=== PATIENT | male | born 2000 | race Caucasian/White ===

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

== ENCOUNTER 2021-11-18 10:55 | Emergency (ER) | payer OTHER, BC ==
[~2021-11-18] VITALS: Ht 175.3 cm; Wt 75.0 kg
[2021-11-18 13:21] VITALS: BP 165/92
== END 2021-11-18 13:23 | disposition home or self-care (01) ==
LOC: M ED 10:55
DX: S60.222A Contusion of left hand, initial encounter (principal); Y92.9 Unspecified place or not applicable; Y93.9 Activity, unspecified; Y99.0 Civilian activity done for income or pay; F17.200 Nicotine dependence, unspecified, uncomplicated

== ENCOUNTER → 2021-11-26 | Outpatient (CLI) | payer OTHER, BC | LOC: M SOG 08:21 | PROVIDERS: ATTEND Physician Assistant | DX: S60.222A Contusion of left hand, initial encounter (principal); W18.30XA Fall on same level, unspecified, initial encounter; Y92.009 Unspecified place in unspecified non-institutional (private) residence as the place of occurrence of the external cause ==

== ENCOUNTER → 2022-01-21 | Outpatient (REF) | payer BC | LOC: M LAB REF 16:23 | PROVIDERS: ATTEND Physician Assistant | DX: R05.9 Cough, unspecified (principal); R50.9 Fever, unspecified ==

== ENCOUNTER 2022-06-22 12:08 | Emergency (ER) | payer BC ==
[~2022-06-22] VITALS: Ht 172.7 cm; Wt 70.7 kg
[2022-06-22 12:10] VITALS: BP 133/67
[2022-06-22] MEDS ORDERED: GI COCKTAIL 50ML BTL(HYOSCYAMINE/MAALOX/LIDOCAINE VISCOUS)(1:3:1) PO ONE (14:40)
[2022-06-22] MEDS ORDERED: KETOROLAC 60MG 2ML VIAL IM ONE (14:40)
[2022-06-22] MEDS ORDERED: LIDOCAINE 5% (LIDODERM) PATCH TD ONE (14:40)
[2022-06-22] MEDS ORDERED: **NOTE PATIENT COMMENT** MISC XX SCH (21:00)
== END 2022-06-22 14:47 | disposition left against medical advice (07) ==
LOC: M ED 12:08
DX: R07.9 Chest pain, unspecified (principal); J45.909 Unspecified asthma, uncomplicated; F17.200 Nicotine dependence, unspecified, uncomplicated; Z53.20 Procedure and treatment not carried out because of patient's decision for unspecified reasons

== ENCOUNTER 2022-09-14 10:22 | Emergency (ER) | payer BC ==
[~2022-09-14] VITALS: Ht 175.3 cm; Wt 68.2 kg
[2022-09-14] MEDS ORDERED: METH4PACK (10:44)
[2022-09-14] MEDS ORDERED: TIZA2TA (10:44)
[2022-09-14] MEDS ORDERED: AMOX500T2 PO (11:03)
[2022-09-14 11:58] VITALS: BP 139/78
== END 2022-09-14 12:10 | disposition home or self-care (01) ==
LOC: M ED 10:22
DX: K04.7 Periapical abscess without sinus (principal); K02.9 Dental caries, unspecified; F17.200 Nicotine dependence, unspecified, uncomplicated

== ENCOUNTER 2023-04-20 12:25 | Emergency (ER) | payer BC ==
[~2023-04-20] VITALS: Ht 175.3 cm; Wt 80.5 kg
[~2023-04-20 12:25] MED LIST changes: +AMOX500T2 PO; +METH4PACK; +TIZA2TA
[2023-04-20] MEDS ORDERED: AMOX875T (12:52)
[2023-04-20] MEDS ORDERED: IBUP80TA (12:52)
[2023-04-20 16:51] LABS: BASO # 0.1 10^3/uL (0.0-0.2); BASO % 0.5 % (0.0-1.0); EOS # 0.7 10^3/uL (0.0-0.5); HEMATOCRIT 45.8 % (42.0-52.0); HEMOGLOBIN 15.3 g/dl (13.5-17.5); LYMPH # 2.1 10^3/uL (1.5-5.0); LYMPH % 22.6 % (24.0-44.0); MEAN CORPUSCULAR HEMOGLOBIN 29.1 pg (27.0-33.0); MEAN CORPUSCULAR HGB CONC 33.4 g/dl (32.0-36.5); MEAN CORPUSCULAR VOLUME 87.2 fl (80.0-96.0); MONO # 0.9 10^3/uL (0.0-0.8); MONO % 9.6 % (2.0-8.0); NEUTROPHILS # 5.4 10^3/uL (1.5-8.5); NEUTROPHILS % 59.1 % (36.0-66.0); PLATELET COUNT, AUTOMATED 269 10^3/uL (150-450); RED BLOOD COUNT 5.25 10^6/uL (4.30-6.10); WHITE BLOOD COUNT 9.2 10^3/uL (4.0-10.0)
[2023-04-20] MEDS ORDERED: ISOVUE-370 76% 100ML VIAL As Ordered ONE (17:01)
[2023-04-20] MEDS ORDERED: KETOROLAC 30 MG/ML 1ML VIAL IV ONE (17:10)
[2023-04-20] MEDS ORDERED: CLEO300C2 PO (17:42)
[2023-04-20 17:49] VITALS: BP 145/89; TEMP 97.3; O2SAT 100
== END 2023-04-20 17:50 | disposition home or self-care (01) ==
LOC: M ED 12:25
DX: K04.7 Periapical abscess without sinus (principal); Z88.0 Allergy status to penicillin
CPT/HCPCS: 36415; 70487; 80047; 85025; 99283; J1885; Q9967

== ENCOUNTER 2023-04-25 01:25 | Emergency (ER) | payer BC ==
[~2023-04-25] VITALS: Ht 175.3 cm; Wt 83.7 kg
[2023-04-25 01:25] VITALS: BP 141/94; TEMP 97; O2SAT 98
[~2023-04-25 01:25] MED LIST changes: +AMOX875T; +CLEO300C2 PO; +IBUP80TA PO
[2023-04-25] MEDS ORDERED: ACET-683 PO (01:30)
== END 2023-04-25 02:45 | disposition left against medical advice (07) ==
LOC: M ED 01:25
DX: Z53.21 Procedure and treatment not carried out due to patient leaving prior to being seen by health care provider (principal)

== ENCOUNTER 2023-04-25 07:23 | Observation (INO) | payer BC ==
[~2023-04-25] VITALS: Ht 175.3 cm; Wt 82.0 kg
[~2023-04-25 07:23] MED LIST changes: +ACET-683 PO
[2023-04-25] MEDS ORDERED: CLINDAMYCIN 600 MG in IV 1 EA IV ONE (09:25)
[2023-04-25] MEDS ORDERED: ONDANSETRON 4MG 2ML VIAL IV ONE (09:25)
[2023-04-25] MEDS: MORPHINE 4 MG/ML 1ML VIAL IV PRN ×2 (09:39→10:50)
[2023-04-25 10:05] LABS: BASO % 0.5 % (0.0-1.0); EOS # 0.7 10^3/uL (0.0-0.5); EOS % 8.3 % (0.0-3.0); HEMATOCRIT 40.1 % (42.0-52.0); HEMOGLOBIN 14.2 g/dl (13.5-17.5); LYMPH # 1.5 10^3/uL (1.5-5.0); MEAN CORPUSCULAR HEMOGLOBIN 29.5 pg (27.0-33.0); MEAN CORPUSCULAR HGB CONC 35.4 g/dl (32.0-36.5); MEAN CORPUSCULAR VOLUME 83.4 fl (80.0-96.0); MONO # 0.6 10^3/uL (0.0-0.8); NEUTROPHILS # 5.1 10^3/uL (1.5-8.5); NEUTROPHILS % 64.8 % (36.0-66.0); PLATELET COUNT, AUTOMATED 241 10^3/uL (150-450); RED BLOOD COUNT 4.81 10^6/uL (4.30-6.10); WHITE BLOOD COUNT 7.8 10^3/uL (4.0-10.0)
[2023-04-25] MEDS ORDERED: ISOVUE-370 76% 100ML VIAL As Ordered ONE (10:34)
[2023-04-25] MEDS ORDERED: AMPICILLIN SOD/SULBACTAM SOD 3 GM in D5W MINI-BAG PLUS 100 ML IV ONE (11:50)
[2023-04-25] MEDS ORDERED: dexAMETHasone 20MG/5ML VIAL IV ONE (11:50)
[2023-04-25] MEDS ORDERED: KETOROLAC 30 MG/ML 1ML VIAL IV PRN (11:55)
[2023-04-25] MEDS ORDERED: MED REC IN PROGRESS XX SCH (12:20)
[2023-04-25 12:54] LABS: INR 0.96
[2023-04-25 12:55] LABS: PARTIAL THROMBOPLASTIN TIME 30.2 SECONDS (24.8-34.2)
[2023-04-25] MEDS ORDERED: HOME MED LIST COMPLETE! XX SCH (13:00)
[2023-04-25 13:06] LABS: ALBUMIN 4.6 G/DL (3.2-5.2); ALKALINE PHOSPHATASE 61 U/L (46-116); ALT/SGPT 23 U/L (7.0-40); AST/SGOT 10 U/L (<34); BILIRUBIN,TOTAL 0.6 MG/DL (0.3-1.2); BLOOD UREA NITROGEN 11 MG/DL (9-23); CALCIUM LEVEL 9.5 MG/DL (8.5-10.1); CARBON DIOXIDE LEVEL 29 MMOL/L (20-31); CHLORIDE LEVEL 103 MMOL/L (98-107); CREATININE FOR GFR 0.82 MG/DL (0.70-1.30); GLOMERULAR FILTRATION RATE > 60.0 (>60); GLUCOSE, FASTING 90 MG/DL (60-100); POTASSIUM SERUM 3.8 MMOL/L (3.5-5.1); SODIUM LEVEL 139 MMOL/L (136-145); TOTAL PROTEIN 8.8 G/DL (5.7-8.2)
[2023-04-25 16:07] VITALS: BP 127/82; TEMP 97.5; O2SAT 99
[2023-04-25] MEDS ORDERED: AMPICILLIN SOD/SULBACTAM SOD 3 GM in D5W MINI-BAG PLUS 100 ML IV SCH (19:00)
[2023-04-25 21:00] VITALS: BP 124/82; TEMP 97.9; O2SAT 97
[2023-04-25] MEDS: AMPICILLIN SOD/SULBACTAM SOD 3 GM in D5W MINI-BAG PLUS 100 ML IV SCH (21:21)
[2023-04-25] MEDS: LR 1,000 ML IV SCH (23:45)
[2023-04-26] VITALS (8 sets, daily range): BP systolic 104–138; BP diastolic 54–96; TEMP 97–98.1; O2SAT 94–100
[2023-04-26] MEDS: AMPICILLIN SOD/SULBACTAM SOD 3 GM in D5W MINI-BAG PLUS 100 ML IV SCH ×4 (04:29→20:22)
[2023-04-26 05:54] LABS: HEMATOCRIT 38.3 % (42.0-52.0); HEMOGLOBIN 13.3 g/dl (13.5-17.5); MEAN CORPUSCULAR HEMOGLOBIN 29.5 pg (27.0-33.0); MEAN CORPUSCULAR HGB CONC 34.7 g/dl (32.0-36.5); MEAN CORPUSCULAR VOLUME 84.9 fl (80.0-96.0); PLATELET COUNT, AUTOMATED 281 10^3/uL (150-450); RED BLOOD COUNT 4.51 10^6/uL (4.30-6.10); WHITE BLOOD COUNT 11.1 10^3/uL (4.0-10.0)
[2023-04-26 06:28] LABS: BLOOD UREA NITROGEN 13 MG/DL (9-23); CALCIUM LEVEL 9.7 MG/DL (8.5-10.1); CARBON DIOXIDE LEVEL 28 MMOL/L (20-31); CHLORIDE LEVEL 101 MMOL/L (98-107); CREATININE FOR GFR 0.78 MG/DL (0.70-1.30); GLOMERULAR FILTRATION RATE > 60.0 (>60); GLUCOSE, FASTING 141 MG/DL (60-100); SODIUM LEVEL 136 MMOL/L (136-145)
[2023-04-26] MEDS: ENOXAPARIN 40MG/0.4ML SYRINGE (J1650 PER 10MG) SC SCH (08:28)
[2023-04-26] MEDS: LR 1,000 ML IV SCH (13:12)
[2023-04-26] MEDS: MORPHINE 4 MG/ML 1ML VIAL IV PRN (16:09)
[2023-04-26] MEDS ORDERED: fentaNYL 100 MCG/2 ML INJECTION As Ordered ONE ×2 (16:47→17:32)
[2023-04-26] MEDS ORDERED: propofoL 200 MG/20 ML VIAL As Ordered ONE (16:47)
[2023-04-26] MEDS ORDERED: MIDAZOLAM INJ 2MG/2ML VIAL As Ordered ONE (16:47)
[2023-04-26] MEDS ORDERED: LIDOCAINE 2% 100MG/5ML SDV (FOR ANES.) As Ordered ONE (16:47)
[2023-04-26] MEDS ORDERED: CHLORHEXIDINE GLUCONATE 0.12 % 15ML UDC (PERIDEX ORAL RINSE) As Ordered ONE (16:52)
[2023-04-26] MEDS ORDERED: LIDOCAINE 2% W/ EPINEPHRINE 1.7 ML DENTAL INJ As Ordered ONE (16:53)
[2023-04-26] MEDS ORDERED: ROCURONIUM BROMIDE 50MG/5ML VIAL As Ordered ONE (17:22)
[2023-04-26] MEDS ORDERED: KETOROLAC 60MG 2ML VIAL As Ordered ONE (17:54)
[2023-04-26] MEDS ORDERED: ACETAMINOPHEN 1000MG 100ML IV BAG As Ordered ONE (17:54)
[2023-04-26] MEDS ORDERED: SUGAMMADEX SODIUM 500 MG/5 ML VIAL (BRIDION) As Ordered ONE (17:54)
[2023-04-26] MEDS ORDERED: ONDANSETRON 4MG 2ML VIAL As Ordered ONE (18:02)
[2023-04-26] MEDS ORDERED: oxyCODONE 5MG TAB PO PRN (18:20)
[2023-04-26] MEDS ORDERED: ONDANSETRON 4MG 2ML VIAL IV PRN (18:20)
[2023-04-26] MEDS ORDERED: HYDROMORPHONE HCL 0.5 MG/ 0.5 ML SYRINGE IV PRN (18:20)
[2023-04-26] MEDS ORDERED: fentaNYL 100 MCG/2 ML INJECTION IV PRN (18:20)
[2023-04-26] MEDS ORDERED: LR 1,000 ML IV SCH (18:20)
[2023-04-27 00:33] VITALS: BP 106/57; TEMP 97.3; O2SAT 96
[2023-04-27] MEDS: AMPICILLIN SOD/SULBACTAM SOD 3 GM in D5W MINI-BAG PLUS 100 ML IV SCH ×3 (03:12→15:06)
[2023-04-27 04:33] VITALS: BP 114/66; TEMP 97.2; O2SAT 96
[2023-04-27] MEDS: LR 1,000 ML IV SCH (06:29)
[2023-04-27 06:30] LABS: HEMATOCRIT 32.9 % (42.0-52.0); HEMOGLOBIN 11.4 g/dl (13.5-17.5); MEAN CORPUSCULAR HEMOGLOBIN 29.5 pg (27.0-33.0); MEAN CORPUSCULAR HGB CONC 34.7 g/dl (32.0-36.5); MEAN CORPUSCULAR VOLUME 85.2 fl (80.0-96.0); PLATELET COUNT, AUTOMATED 198 10^3/uL (150-450); RED BLOOD COUNT 3.86 10^6/uL (4.30-6.10); WHITE BLOOD COUNT 7.3 10^3/uL (4.0-10.0)
[2023-04-27 06:48] LABS: BLOOD UREA NITROGEN 14 MG/DL (9-23); CALCIUM LEVEL 8.7 MG/DL (8.5-10.1); CARBON DIOXIDE LEVEL 29 MMOL/L (20-31); CHLORIDE LEVEL 104 MMOL/L (98-107); CREATININE FOR GFR 0.92 MG/DL (0.70-1.30); GLOMERULAR FILTRATION RATE > 60.0 (>60); GLUCOSE, FASTING 84 MG/DL (60-100); POTASSIUM SERUM 3.9 MMOL/L (3.5-5.1); SODIUM LEVEL 141 MMOL/L (136-145)
[2023-04-27] MEDS: ENOXAPARIN 40MG/0.4ML SYRINGE (J1650 PER 10MG) SC SCH (08:18)
[2023-04-27] MEDS: MORPHINE 4 MG/ML 1ML VIAL IV PRN (08:21)
[2023-04-27 08:30] VITALS: BP 129/72; TEMP 97.9; O2SAT 95
[2023-04-27] MEDS ORDERED: ACETAMINOPHEN TAB 650MG DOSE (2X325MG) PO PRN (10:40)
[2023-04-27] MEDS ORDERED: PERCOCET 5MG/325MG TAB PO PRN ×2 (10:40)
[2023-04-27 14:00] VITALS: BP 124/64; TEMP 97.7; O2SAT 96
[2023-04-27] MEDS ORDERED: IBUP80TA PO (17:05)
[2023-04-27] MEDS ORDERED: AMOX500C PO (17:05)
[2023-04-27] MEDS ORDERED: PERCOCET PO ×4 (17:05→17:39)
[2023-04-27] MEDS ORDERED: PERI12LIQ PO (17:12)
[2023-04-27 18:00] VITALS: BP 134/70; TEMP 97.7; O2SAT 96
== END 2023-04-27 18:09 | disposition home or self-care (01) ==
LOC: M ED 07:23 → M ED INP 07:24 → ENRESERV 14:20 → M MSPAV 16:02
PROVIDERS: ADMIT Internal Medicine; ATTEND Internal Medicine
DX: K12.2 Cellulitis and abscess of mouth (principal); K04.7 Periapical abscess without sinus; K02.9 Dental caries, unspecified; S02.5XXA Fracture of tooth (traumatic), initial encounter for closed fracture; X58.XXXA Exposure to other specified factors, initial encounter; Y92.89 Other specified places as the place of occurrence of the external cause; R68.84 Jaw pain; R22.0 Localized swelling, mass and lump, head; F17.290 Nicotine dependence, other tobacco product, uncomplicated; Z88.0 Allergy status to penicillin
CPT/HCPCS: 36415; 41899; 70355; 70487; 80047; 80048; 80053; 85025; 85027; 85610; 85730; 87070; 87075; 87076; 87077; 87186; 87635; 87641; 88300; 96365; 96366; 96367; 96372; 96375; 96376; 99284; C1751; J0131; J0295; J0737; J1100; J1650; J1885; J2250; J2405; J3010; Q9967

== ENCOUNTER 2024-01-19 08:05 | Emergency (ER) | payer BC ==
[~2024-01-19] VITALS: Ht 175.3 cm; Wt 98.1 kg
[~2024-01-19 08:05] MED LIST changes: +AMOX500C PO; +PERCOCET PO; +PERI12LIQ PO
[2024-01-19] MEDS ORDERED: TUMS500C PO (08:20)
[2024-01-19] MEDS: ONDANSETRON 4MG 2ML VIAL IV ONE (09:10)
[2024-01-19] MEDS: KETOROLAC 30 MG/ML 1ML VIAL IV ONE (09:28)
[2024-01-19] MEDS: NS 1,000 ML IV ONE (09:29)
[2024-01-19 09:43] LABS: BASO # 0.1 10^3/uL (0.0-0.2); BASO % 0.5 % (0.0-1.0); EOS # 0.6 10^3/uL (0.0-0.5); HEMATOCRIT 44.3 % (42.0-52.0); HEMOGLOBIN 15.7 g/dl (13.5-17.5); LYMPH # 1.3 10^3/uL (1.5-5.0); LYMPH % 11.2 % (24.0-44.0); MEAN CORPUSCULAR HGB CONC 35.4 g/dl (32.0-36.5); MEAN CORPUSCULAR VOLUME 84.7 fl (80.0-96.0); MONO # 0.8 10^3/uL (0.0-0.8); MONO % 6.6 % (2.0-8.0); NEUTROPHILS # 8.8 10^3/uL (1.5-8.5); NEUTROPHILS % 76.3 % (36.0-66.0); RED BLOOD COUNT 5.23 10^6/uL (4.30-6.10); WHITE BLOOD COUNT 11.5 10^3/uL (4.0-10.0)
[2024-01-19 10:02] LABS: LIPASE 29 U/L (12-53)
[2024-01-19 10:03] LABS: C REACTIVE PROTEIN QUANTITATIV < 0.40 MG/DL (<1.0)
[2024-01-19 10:05] LABS: ALKALINE PHOSPHATASE 63 U/L (46-116); ALT/SGPT 95 U/L (7.0-40); AST/SGOT 44 U/L (<34); BILIRUBIN,DIRECT 0.2 MG/DL (<0.4); BILIRUBIN,TOTAL 0.7 MG/DL (0.3-1.2); BLOOD UREA NITROGEN 9 MG/DL (9-23); CARBON DIOXIDE LEVEL 23 MMOL/L (20-31); CHLORIDE LEVEL 106 MMOL/L (98-107); CREATININE FOR GFR 0.79 MG/DL (0.70-1.30); GLOMERULAR FILTRATION RATE > 60.0 (>60); GLUCOSE, FASTING 99 MG/DL (60-100); POTASSIUM SERUM 4.1 MMOL/L (3.5-5.1); SODIUM LEVEL 138 MMOL/L (136-145); TOTAL PROTEIN 7.9 G/DL (5.7-8.2)
[2024-01-19 10:22] LABS: PLATELET COUNT, AUTOMATED 253 10^3/uL (150-450)
[2024-01-19 11:09] LABS: RSV AMPLIFICATION NEGATIVE (NEGATIVE)
[2024-01-19 12:37] VITALS: BP 131/65; TEMP 98; O2SAT 98
== END 2024-01-19 12:45 | disposition home or self-care (01) ==
LOC: M ED 08:05
DX: R10.9 Unspecified abdominal pain (principal); K58.9 Irritable bowel syndrome, unspecified; F17.290 Nicotine dependence, other tobacco product, uncomplicated; F10.10 Alcohol abuse, uncomplicated; Z88.8 Allergy status to other drugs, medicaments and biological substances
CPT/HCPCS: 76705; 80048; 80076; 81001; 83690; 85025; 86140; 87631; 96361; 96374; 96375; 99284; J1885; J2405

== ENCOUNTER 2024-01-24 00:02 | Emergency (ER) | payer BC ==
[~2024-01-24] VITALS: Ht 177.8 cm; Wt 98.5 kg
[2024-01-24 00:02] VITALS: TEMP 96.3
[~2024-01-24 00:02] MED LIST changes: +TUMS500C PO
[2024-01-24 00:55] LABS: BASO # 0.1 10^3/uL (0.0-0.2); BASO % 0.8 % (0.0-1.0); EOS % 12.9 % (0.0-3.0); HEMATOCRIT 39.7 % (42.0-52.0); HEMOGLOBIN 14.1 g/dl (13.5-17.5); LYMPH # 2.5 10^3/uL (1.5-5.0); LYMPH % 33.4 % (24.0-44.0); MEAN CORPUSCULAR HEMOGLOBIN 30.1 pg (27.0-33.0); MEAN CORPUSCULAR HGB CONC 35.5 g/dl (32.0-36.5); MEAN CORPUSCULAR VOLUME 84.6 fl (80.0-96.0); MONO # 0.6 10^3/uL (0.0-0.8); MONO % 8.4 % (2.0-8.0); NEUTROPHILS # 3.2 10^3/uL (1.5-8.5); NEUTROPHILS % 44.1 % (36.0-66.0); PLATELET COUNT, AUTOMATED 262 10^3/uL (150-450); RED BLOOD COUNT 4.69 10^6/uL (4.30-6.10); WHITE BLOOD COUNT 7.4 10^3/uL (4.0-10.0)
[2024-01-24 01:16] LABS: LIPASE 34 U/L (12-53)
[2024-01-24 01:18] LABS: ALBUMIN 3.9 G/DL (3.2-5.2); ALKALINE PHOSPHATASE 61 U/L (46-116); ALT/SGPT 119 U/L (7.0-40); AST/SGOT 45 U/L (<34); BILIRUBIN,DIRECT 0.2 MG/DL (<0.4); BILIRUBIN,TOTAL 0.6 MG/DL (0.3-1.2); BLOOD UREA NITROGEN 18 MG/DL (9-23); CALCIUM LEVEL 9.3 MG/DL (8.5-10.1); CARBON DIOXIDE LEVEL 22 MMOL/L (20-31); CHLORIDE LEVEL 108 MMOL/L (98-107); CREATININE FOR GFR 0.86 MG/DL (0.70-1.30); GLOMERULAR FILTRATION RATE > 60.0 (>60); GLUCOSE, FASTING 113 MG/DL (60-100); POTASSIUM SERUM 3.7 MMOL/L (3.5-5.1); SODIUM LEVEL 139 MMOL/L (136-145); TOTAL PROTEIN 7.2 G/DL (5.7-8.2)
[2024-01-24] MEDS: ONDANSETRON 4MG 2ML VIAL IV ONE (02:50)
[2024-01-24] MEDS: KETOROLAC 30 MG/ML 1ML VIAL IV ONE (02:50)
[2024-01-24] MEDS: NS 1,000 ML IV ONE (02:50)
[2024-01-24 04:30] VITALS: BP 104/55; O2SAT 97
== END 2024-01-24 04:44 | disposition home or self-care (01) ==
LOC: M ED 00:02
DX: S39.011A Strain of muscle, fascia and tendon of abdomen, initial encounter (principal); Y92.9 Unspecified place or not applicable; Y93.9 Activity, unspecified; Y99.9 Unspecified external cause status; Z88.8 Allergy status to other drugs, medicaments and biological substances
CPT/HCPCS: 74176; 80053; 81001; 82248; 83690; 85025; 96374; 99284; J1885; J2405

== ENCOUNTER → 2024-05-15 | Outpatient (CLI) | payer BC ==
[2024-05-15 09:58] LABS: BASO # 0.1 10^3/uL (0.0-0.2); BASO % 0.8 % (0.0-1.0); EOS # 0.9 10^3/uL (0.0-0.5); EOS % 11.5 % (0.0-3.0); HEMATOCRIT 41.2 % (42.0-52.0); HEMOGLOBIN 14.4 g/dl (13.5-17.5); LYMPH # 1.8 10^3/uL (1.5-5.0); LYMPH % 24.5 % (24.0-44.0); MEAN CORPUSCULAR HEMOGLOBIN 30.2 pg (27.0-33.0); MEAN CORPUSCULAR VOLUME 86.4 fl (80.0-96.0); MONO # 0.6 10^3/uL (0.0-0.8); MONO % 7.8 % (2.0-8.0); NEUTROPHILS # 4.1 10^3/uL (1.5-8.5); NEUTROPHILS % 54.9 % (36.0-66.0); PLATELET COUNT, AUTOMATED 253 10^3/uL (150-450); RED BLOOD COUNT 4.77 10^6/uL (4.30-6.10); WHITE BLOOD COUNT 7.5 10^3/uL (4.0-10.0)
[2024-05-15 10:20] LABS: ALBUMIN 3.9 G/DL (3.2-5.2); BILIRUBIN,DIRECT 0.2 MG/DL (<0.4); BILIRUBIN,TOTAL 0.7 MG/DL (0.3-1.2); TOTAL PROTEIN 7.5 G/DL (5.7-8.2)
== END ==
LOC: M LAB 09:07
PROVIDERS: ATTEND Family Medicine
DX: R94.5 Abnormal results of liver function studies (principal)

== ENCOUNTER → 2024-07-10 | Outpatient (REF) | payer BC | LOC: M LAB REF 12:17 | PROVIDERS: ATTEND Physician Assistant Medical | DX: B34.9 Viral infection, unspecified (principal) ==

== ENCOUNTER → 2024-07-19 | Outpatient (CLI) | payer BC ==
[2024-07-19 08:08] LABS: BASO # 0.1 10^3/uL (0.0-0.2); BASO % 0.7 % (0.0-1.0); EOS # 0.8 10^3/uL (0.0-0.5); EOS % 11.5 % (0.0-3.0); HEMATOCRIT 42.1 % (42.0-52.0); HEMOGLOBIN 14.4 g/dl (13.5-17.5); LYMPH # 1.9 10^3/uL (1.5-5.0); LYMPH % 27.6 % (24.0-44.0); MEAN CORPUSCULAR HEMOGLOBIN 29.2 pg (27.0-33.0); MEAN CORPUSCULAR HGB CONC 34.2 g/dl (32.0-36.5); MEAN CORPUSCULAR VOLUME 85.4 fl (80.0-96.0); MONO # 0.6 10^3/uL (0.0-0.8); MONO % 8.1 % (2.0-8.0); NEUTROPHILS # 3.5 10^3/uL (1.5-8.5); NEUTROPHILS % 50.4 % (36.0-66.0); PLATELET COUNT, AUTOMATED 257 10^3/uL (150-450); RED BLOOD COUNT 4.93 10^6/uL (4.30-6.10); WHITE BLOOD COUNT 6.9 10^3/uL (4.0-10.0)
[2024-07-19 08:34] LABS: IRON (FE) 89 UG/DL (65-175)
[2024-07-19 08:35] LABS: PERCENT SATURATION 27.6 % (19.7-50.0); TOTAL IRON BINDING CAPACITY 322 UG/DL (250-425)
[2024-07-19 08:36] LABS: ALBUMIN 3.7 G/DL (3.2-5.2); ALKALINE PHOSPHATASE 68 U/L (40-129); ALT/SGPT 77 U/L (7.0-40); AST/SGOT 37 U/L (<34); BILIRUBIN,TOTAL 0.5 MG/DL (0.3-1.2); BLOOD UREA NITROGEN 13 MG/DL (9-23); CALCIUM LEVEL 9.6 MG/DL (8.5-10.1); CARBON DIOXIDE LEVEL 24 MMOL/L (20-31); CHLORIDE LEVEL 108 MMOL/L (98-107); CHOLESTEROL LEVEL 184 MG/DL (<200); CHOLESTEROL RISK RATIO 5.54 (<5); CREATININE FOR GFR 0.87 MG/DL (0.70-1.30); GLOMERULAR FILTRATION RATE > 60.0 (>60); GLUCOSE, FASTING 94 MG/DL (60-100); HDL CHOLESTEROL 33.2 MG/DL (>40); NON-HDL-C 150.8 MG/DL; POTASSIUM SERUM 4.4 MMOL/L (3.5-5.1); SODIUM LEVEL 140 MMOL/L (136-145); TOTAL PROTEIN 7.2 G/DL (5.7-8.2); TRIGLYCERIDES LEVEL 194 MG/DL (<150)
[2024-07-19 08:40] LABS: FREE T4 1.13 NG/DL (0.89-1.76); VITAMIN B12 LEVEL 717 PG/ML (211-911)
[2024-07-20 18:27] LABS: HEPATITIS B SURFACE ANTIGEN NEGATIVE (NEGATIVE)
[2024-07-20 18:48] LABS: HEPATITIS B CORE ANTIBODY IGM NEGATIVE (NEGATIVE); HEPATITIS C VIRUS ABY INDEX 0.03 INDEX (<0.8)
== END ==
LOC: M LAB 07:06
PROVIDERS: ATTEND Nurse Practitioner Adult Health
DX: L65.9 Nonscarring hair loss, unspecified (principal)

== ENCOUNTER 2024-07-27 19:49 | Emergency (ER) | payer OTHER, BC ==
[~2024-07-27] VITALS: Ht 177.8 cm; Wt 103.1 kg
[2024-07-27] MEDS: CEPHALEXIN 500 MG CAP PO ONE (21:28)
[2024-07-27] MEDS: IBUPROFEN 600MG TAB PO ONE (21:28)
[2024-07-27] MEDS ORDERED: IBUP-1022 PO (22:35)
[2024-07-27] MEDS ORDERED: CEPH500C PO (22:35)
[2024-07-27 22:46] VITALS: BP 134/81; TEMP 97.3; O2SAT 98
== END 2024-07-27 22:47 | disposition home or self-care (01) ==
LOC: M ED 19:49
DX: S67.190A Crushing injury of right index finger, initial encounter (principal); Y92.019 Unspecified place in single-family (private) house as the place of occurrence of the external cause; Y93.9 Activity, unspecified; Y99.9 Unspecified external cause status; J45.909 Unspecified asthma, uncomplicated; K58.9 Irritable bowel syndrome, unspecified; Z88.1 Allergy status to other antibiotic agents; Z79.1 Long term (current) use of non-steroidal anti-inflammatories (NSAID); Z79.52 Long term (current) use of systemic steroids

== ENCOUNTER → 2024-12-29 | Outpatient (CLI) | payer BC ==
[~2024-12-29] MED LIST changes: +CEPH500C PO; +IBUP-1022 PO
== END ==
LOC: M RAD 09:59
PROVIDERS: ATTEND Nurse Practitioner Adult Health
DX: M25.511 Pain in right shoulder (principal); Z87.81 Personal history of (healed) traumatic fracture

== ENCOUNTER 2025-03-26 05:49 | Emergency (ER) | payer BC ==
[~2025-03-26] VITALS: Ht 177.8 cm; Wt 100.0 kg
[2025-03-26 08:34] VITALS: BP 125/80; TEMP 98.7; O2SAT 96
== END 2025-03-26 08:38 | disposition home or self-care (01) ==
LOC: M ED 05:49
DX: S99.922A Unspecified injury of left foot, initial encounter (principal); Y92.410 Unspecified street and highway as the place of occurrence of the external cause; Y93.9 Activity, unspecified; Y99.9 Unspecified external cause status; Z88.1 Allergy status to other antibiotic agents; Z88.8 Allergy status to other drugs, medicaments and biological substances; Z79.1 Long term (current) use of non-steroidal anti-inflammatories (NSAID); Z79.2 Long term (current) use of antibiotics